=== PATIENT | male | born 2000 ===

== ENCOUNTER 2021-05-11 03:03 | Emergency (ER) | payer OTHER ==
[~2021-05-11] VITALS: Ht 180.3 cm; Wt 79.5 kg
--- NOTE | 2021-05-11 05:07 | REPVR ---
PROCEDURE INFORMATION: Exam: XR Left Wrist Exam date and time: 05/11/2021 3:54 AM Age: 20 years old Clinical indication: Injury or trauma; Fall; Sprain or strain; Wrist; Left TECHNIQUE: Imaging protocol: XR Left wrist. Views: 3 or more views. COMPARISON: No relevant prior studies available. FINDINGS: Bones/joints: A subtle, rounded calcific or ossified focus is seen dorsally at the wrist, which may represent an accessory ossicle or a nonspecific periarticular calcification. The appearance is not suspicious for a fracture. There is no evidence of acute fracture or dislocation. Soft tissues: There is a suggestion of soft tissue swelling on the radial side of the wrist. IMPRESSION: Soft tissue swelling but no acute fracture identified. Electronically signed by: Marti Berman On 05/11/2021 05:06:54 AM
[2021-05-11 05:45] VITALS: BP 134/66
[2021-05-11] MEDS ORDERED: IBUPROFEN 600MG TAB PO ONE (06:35)
== END 2021-05-11 07:16 | disposition left against medical advice (07) ==
LOC: M ED 03:03
DX: Z04.1 Encounter for examination and observation following transport accident (principal); S69.92XA Unspecified injury of left wrist, hand and finger(s), initial encounter; V40.1XXA Car passenger injured in collision with pedestrian or animal in nontraffic accident, initial encounter; Y92.89 Other specified places as the place of occurrence of the external cause; Y93.89 Activity, other specified; Y99.8 Other external cause status; F17.210 Nicotine dependence, cigarettes, uncomplicated; Z88.0 Allergy status to penicillin; Z88.8 Allergy status to other drugs, medicaments and biological substances